=== PATIENT | male | born 1945 | race African-American/Black ===

== ENCOUNTER 2020-11-29 06:47 | Emergency (ER) | payer OTHER ==
[2020-11-29] MEDS ORDERED: EPINEPHrine 1:10,000 (P-F SYR) 1 MG/10 ML DISP.SYRIN ONE (06:55)
[2020-11-29] MEDS ORDERED: CALCIUM CHLORIDE 1 GM/10 ML *DISP.SYRIN ONE (06:56)
[2020-11-29] MEDS ORDERED: SODIUM BICARBONATE 8.4% - 50 ML ONE (06:56)
[2020-11-29 07:24] VITALS: BP 00/00; TEMP 96.7; BMI 25.7
== END 2020-11-29 09:22 | disposition expired ==
LOC: JER 06:47
DX: I46.9 Cardiac arrest, cause unspecified (principal)
CPT/HCPCS: 99284-25